=== PATIENT | male | born 1955 | race Caucasian/White ===

== ENCOUNTER 2018-07-16 02:13 | Outpatient (CLI) | payer MEDICAID, MEDICARE, SELFPAY | END 2018-07-16 02:33 | PROVIDERS: Visit Provider Nurse Practitioner Family | DX: Z79.899 Other long term (current) drug therapy (principal) ==

== ENCOUNTER 2020-08-01 04:20 | Outpatient (CLI) | payer MEDICARE, MEDICAID, SELFPAY ==
--- NOTE | 2020-08-01 09:00 | RT.EKG_ITS ---
APPROVED REPORT Exam: Resting ECG Reason for Exam: High Risk Medication Patient Location: O HR:77 bpm ECG Measurements Heart Rate 77 AXIS IA 179 P 37 QRSd 90 QRS -4 QT 408 T 47 QTc 463 Conclusion Sinus rhythm...normal P axis, V-rate 60- 99 Inferior infarct, old...Q >35mS, II III aVF
== END 2020-08-01 04:21 | disposition home or self-care (01) ==
LOC: RT 04:20
PROVIDERS: Visit Provider Family Medicine
DX: Z79.899 Other long term (current) drug therapy (principal)
CPT/HCPCS: 93005; 93010

== ENCOUNTER 2024-04-16 11:14 | Emergency (ER) | payer MEDICARE, MEDICAID, SELFPAY ==
[2024-04-16] VITALS (11 sets, daily range): BP systolic 118–191; BP diastolic 72–88; PULSE 73–79; RESP 11–22; TEMP 37.1; O2SAT 98–100
--- NOTE | 2024-04-16 11:15 | RT.EKG_ITS ---
APPROVED REPORT Exam: Resting ECG Reason for Exam: Chest pain Patient Location: E HR:81 bpm ECG Measurements Heart Rate 81 AXIS MI 166 P 37 QRSd 101 QRS -9 QT 440 T -13 QTc 511 Conclusion Sinus rhythm...normal P axis, V-rate 60- 99 Prolonged QT interval...QTc >500mS No STEMI
[2024-04-16 11:55] LABS: Abs Immature Grans 0.02 10^3/uL (0.0-0.06); Absolute Basophil Count 0.03 10^3/uL (0.0-0.2); Absolute Eosinophil Count 0.03 10^3/uL (0.0-0.7); Absolute Lymphocyte Count 0.94 10^3/uL (1.2-3.4); Absolute Monocyte Count 0.66 10^3/uL (0.1-0.8); Absolute Neutrophil Count 4.58 10^3/uL (1.2-6.7); Basophils % 0.5 %; Eosinophils % 0.5 %; HCT 39.1 % (40.0-50.0); HGB 14.1 g/dL (13.5-17.5); Immature Grans % 0.3 %; MCH 34.6 pg (27.0-33.0); MCHC 36.1 % (32.0-36.0); MCV 96 fL (80-95); MPV 10.2 fL (8.0-11.0); Monocytes % 10.5 %; Neutrophils % 73.2 %; Platelet Count 143 10^3/uL (130-400); RBC 4.07 10^6/uL (4.36-5.78); RDW 12.5 % (11.8-14.1); RDW-SD 44.1 fL; WBC 6.26 10^3/uL (4.4-10.8)
[2024-04-16 12:16] LABS: Lipase 38 U/L (<78)
[2024-04-16 12:22] LABS: ALT 50 U/L (16-63); AST 56 U/L (15-37); Albumin 3.5 g/dL (3.4-5.0); Alkaline Phosphatase 74 U/L (46-116); Anion Gap 11.4 mmol/L (3-11); BUN 10 mg/dL (7-18); Bilirubin, Total 1.14 mg/dL (0.2-1.0); CO2 25.6 mmol/L (21.0-32.0); CREATININE 0.8 mg/dL (0.70-1.30); Calcium 9.3 mg/dL (8.5-10.1); Chloride 96 mmol/L (98-107); Estimated GFR 95.21 (mL/min/1.73m2); Glucose 95 mg/dL (74-106); Potassium 3.3 mmol/L (3.5-5.1); Sodium 133 mmol/L (136-145); Troponin I 12 ng/L (<or=76)
--- NOTE | 2024-04-16 12:44 | TELEP.MEDR_ITS ---
Date of service: 04/16/24 Time [facility]: 12:[facility] Person Interviewed: pharmacy, discharge med list from Quality Quality of Interview/Accuracy of Medication List: Good Sources Sources used to compile medication list: Retail Pharmacy Changes made to Home Medication List: ADDITIONS: * Acyclovir * albuterol * Symbicort * citalopram * docusate * ferrous gluconate * furosemide * gabapentin * ibuprofen * methocarbamol * oxycodone * pantoprazole * senna * simvastatin * testosterone * B complex DELETIONS: None CHANGES: None Additional Notes Additional Notes: Patient did not know his home medications. I used his pharmacy fill history and recent discharge note from [facility] to update his med list. I was unable to confirm with patient when he last took his medications. Recommended Changes Attestation: The home medication list is now updated to the best of my knowledge and is ready to be reconciled by the provider. [facility] Pharmacist at for any questions.
--- NOTE | 2024-04-16 12:44 | TELEP.MEDREC ---
Date of service: 04/16/24 Time of Service: 12:44 Telepharmacy Home Med Rec Interview Person Interviewed: pharmacy, discharge med list from Quality Quality of Interview/Accuracy of Medication List: Good Sources Sources used to compile medication list: Retail Pharmacy Changes made to Home Medication List: ADDITIONS: Acyclovir albuterol Symbicort citalopram docusate ferrous gluconate furosemide gabapentin ibuprofen methocarbamol oxycodone pantoprazole senna simvastatin testosterone B complex DELETIONS: None CHANGES: None Additional Notes Additional Notes: Patient did not know his home medications. I used his pharmacy fill history and recent discharge note from [facility] to update his med list. I was unable to confirm with patient when he last took his medications. Recommended Changes Attestation: The home medication list is now updated to the best of my knowledge and is ready to be reconciled by the provider. [facility] at for any questions.
--- NOTE | 2024-04-16 12:46 | DI.RAD_ITS ---
Exam(s) XR CHEST 2V PA LATERAL EXAM: XR CHEST 2V PA LATERAL CLINICAL HISTORY: chest pain TECHNIQUE: 2D digital imaging was performed of the chest. Two images were obtained. AP and lateral views were obtained. COMPARISON: No exams were available for comparison FINDINGS: There is poor inspiration. MEDIASTINUM: Normal. HEART: Normal. There is a tortuous thoracic aorta. PULMONARY VASCULATURE: Normal. LUNGS: Clear. PLEURAL SPACE: No pleural effusion or pneumothorax. BONE:Within normal limits for the patient's age. There is a compression deformity of T10. OTHER FINDINGS:Normal. IMPRESSION: No acute pulmonary findings. DATA REPOSITORY: RADIATION DOSE DELIVERED:
[2024-04-16 13:15] LABS: Troponin I 8 ng/L (<or=76)
[2024-04-16] MEDS: POTASSIUM CHLORIDE 20 MEQ, POTASSIUM CHLORIDE 10 MEQ 30 MEQ PO (13:56)
[2024-04-16] MEDS: Methadone Liquid 10 MG/ML 110 MG PO (14:34)
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
== END 2024-04-16 14:27 | disposition home or self-care (01) ==
PROVIDERS: Emergency Provider Physician Assistant
DX: R07.9 Chest pain, unspecified (principal); D64.9 Anemia, unspecified; E87.6 Hypokalemia
CPT/HCPCS: 80053; 83690; 93005; 99285; 71046; 84484; 85025; 93010; 99284

== ENCOUNTER 2024-07-02 01:43 | Outpatient (CLI) | payer MEDICARE, MEDICAID, SELFPAY ==
[2024-07-02] MEDS: Levalbuterol HFA 15 GM INH 4 PUFF IH (15:52)
[2024-07-02] MEDS: Inhaler, Assist Device 1 EACH MC (15:52)
--- NOTE | 2024-07-05 13:47 | W.PFT ---
Date of service: 07/02/24 Time of Service: 14:46 Pulmonary Function Test Result Indications: Asthma Interpretation Spirometry: There is no airflow limitation. No significant bronchodilator response. Lung Volumes: There is restrictive lung disease. Diffusion Capacity: Normal diffusion Airway Pressure: Normal resistance Impression Mild restrictive lung disease with a normal diffusion. Clinical Correlation therefore is recommended.
== END 2024-07-02 01:44 | disposition home or self-care (01) ==
LOC: RT 01:43
PROVIDERS: Visit Provider Student in an Organized Health Care Education/Training Program
DX: J45.30 Mild persistent asthma, uncomplicated (principal)
CPT/HCPCS: 94060; 94726; 94729

== ENCOUNTER 2024-07-02 14:29 | Outpatient (CLI) | payer MEDICARE, MEDICAID, SELFPAY ==
--- NOTE | 2024-07-02 14:30 | RT.EKG_ITS ---
APPROVED REPORT Exam: Resting ECG Reason for Exam: HIGH RISK MEDICATION USE Patient Location: O HR:58 bpm ECG Measurements Heart Rate [address] 185 P 43 QRSd 120 QRS 0 QT 506 T 37 QTc 498 Conclusion Sinus rhythm...normal P axis, V-rate 50- 99 Atrial premature complex...SV complex w/ short R-R interval
== END 2024-07-02 14:30 | disposition home or self-care (01) ==
PROVIDERS: Visit Provider Family Medicine
DX: Z79.899 Other long term (current) drug therapy (principal); J98.4 Other disorders of lung; J45.20 Mild intermittent asthma, uncomplicated
CPT/HCPCS: 93005; 93010